=== PATIENT | male | born 2000 | race Caucasian/White ===

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

== ENCOUNTER 2018-10-04 10:43 | Emergency (ER) | payer BC ==
[2018-10-04] MEDS ORDERED: ONDANSETRON 4 MG/2 ML VIAL IVP STA (11:05)
[2018-10-04] MEDS ORDERED: SODIUM CHLORIDE 0.9% 1,000 ML IV STA ×2 (11:05)
[2018-10-04] MEDS ORDERED: KETOROLAC 30 MG/ML 1 ML VIAL IVP STA (11:24)
--- NOTE | 2018-10-04 11:39 | ED ---
Nausea/Vomiting/Diarrhea HPI - General Chief complaint: Nausea/Vomiting/Diarrhea Stated complaint: fever, bodyaches Time Seen by Provider: 10/04/18 11:04 Source: patient, RN notes reviewed, old records reviewed Mode of arrival: ambulatory Limitations: no limitations - History of Present Illness Initial comments: Is a 18-year-old male presents range from today with fever bodyaches diarrhea and vomiting. Patient reports that he has diffuse abdominal pain and also complained of some chest pain. Recently getting over bronchitis and finished antibiotics last week. Patient states he's had no bloody stools or vomit. - Related Data Home Medications Medication Instructions Recorded Confirmed Lisdexamfetamine Dimesylate 60 mg PO DAILY PRN 08/03/17 10/04/18 [Vyvanse] DULoxetine HCL [Cymbalta] 30 mg PO DAILY 10/04/18 10/04/18 Pregabalin [Lyrica] 75 mg PO BID 10/04/18 10/04/18 clonazePAM [KlonoPIN] 0.5 mg PO BID 10/04/18 10/04/18 Previous Rx's Medication Instructions Recorded Ciprofloxacin HCl [Cipro] 500 mg PO BID 3 Days #6 tab 10/04/18 Allergies Allergy/AdvReac Type Severity Reaction Status Date / Time latex Allergy Unknown Verified 10/04/18 11:05 red dye AdvReac Unknown Verified 10/04/18 11:05 Review of Systems ROS Statement: Those systems with pertinent positive or pertinent negative responses have been documented in the HPI. ROS Other: All systems not noted in ROS Statement are negative. Past Medical History Past Medical History: Asthma, Hypertension Additional Past Medical History / Comment(s): back problems, fatty liver disease History of Any Multi-Drug Resistant Organisms: None Reported Past Surgical History: Adenoidectomy, Tonsillectomy Past Psychological History: ADD/ADHD Smoking Status: Former smoker Past Alcohol Use History: Rare Past Drug Use History: Marijuana General Exam - General Exam Comments Initial Comments: 18-year-old male. Alert and oriented. No distress. General: Well appearing, well nourished, in no distress. Oriented x 3, normal m ood and affect . Ambulating without difficulty. Skin: Good turgor, no rash, unusual bruising or prominent lesions Hair: Normal texture and distribution. HEENT: Head: Normocephalic, atraumatic, no visible or palpable masses, depressions, or scaring. Eyes: Visual acuity intact, conjunctiva clear, sclera non-icteric, EOM intact, PERRL. Mouth: Mucous membranes moist, no mucosal lesions. Teeth/Gums: No obvious caries or periodontal disease. No gingival inflammation or significant resorption. Pharynx: Mucosa non-inflamed, no tonsillar hypertrophy or exudate Neck: Supple, without lesions, bruits, or adenopathy, thyroid non-enlarged and non-tender Heart: No cardiomegaly or thrills; regular rate and rhythm, no murmur or gallop Lungs: Clear to auscultation and percussion Abdomen: Bowel sounds normal, Patient has some right upper quadrant and right lower quadrant tenderness. Back: Spine normal without deformity or tenderness, no CVA tenderness Extremities: No amputations or deformities, cyanosis, edema or varicosities, peripheral pulses intact Musculoskeletal: Normal gait and station. No misalignment, asymmetry, crepitation, defects, tenderness, masses, effusions, decreased range of motion, instability, atrophy or abnormal strength or tone in the head, neck, spine, ribs, pelvis or extremities. Neurologic: CN 2-12 normal. Sensation to pain, touch, and proprioception normal. DTRs normal in upper and lower extremities. No pathologic reflexes. Psychiatric: Oriented X3, intact recent and remote memory, judgment and insight, normal mood and affect. Limitations: no limitations Course Vital Signs 10/04/18 10/04/18 10:48 12:27 Temperature 97.6 F 98.3 F Pulse Rate 95 69 Respiratory 20 16 Rate Blood Pressure 125/73 127/77 O2 Sat by Pulse 99 98 Oximetry Medical Decision Making - Medical Decision Making This is a 18-year-old male presents emergency room today for nausea and vomiting for the past 3 days. He says some episodes of diarrhea. Also complains of chest pain. Recently getting off of antibiotics for Imodium. Patient at this time complains of some discomfort and chest. He was given IV fluids and Toradol. He states he is feeling somewhat better. Labwork was reviewed. Increased liver enzymes and is able to count is elevated. He had a low-grade temperature of 99.0. Patient was reevaluated AND containing please of abdominal discomfort. CT abdomen and pelvis is completed. This is negative for any acute process some evidence of fatty liver disease noted. Patient was able to sleep stool sample. Concerns for possible C. diff with recent antibiotic use. At this time Patient C. diff is negative. Fecal occult was positive. I discussed CT abdomen and pelvis was negative for any changes or signs of sig nificant colitis. At this time with patient's fecal occult being positive white count being elevated nausea and vomiting will treat the Patient for infectious diarrhea with 3 days of Cipro. I discussed this to culture be pending. Patient advised to follow-up with PCP. Will discharge Patient with a course of nausea medicine as well. - Lab Data Result diagrams: 10/04/18 11:25 10/04/18 11:25 Lab Results 10/04/18 10/04/18 10/04/18 Range/Units 11:25 11:25 11:25 WBC 17.5 H (4.0-11.0) k/uL RBC 5.99 H (4.30-5.90) m/uL Hgb 17.0 (13.0-17.5) gm/dL Hct 49.9 (39.0-53.0) % MCV 83.2 (80.0-100.0) fL MCH 28.3 (25.0-35.0) pg MCHC 34.1 (31.0-37.0) g/dL RDW 13.8 (11.5-15.5) % Plt Count 268 (150-450) k/uL Neutrophils % 89 % Lymphocytes % 4 % Monocytes % 5 % Eosinophils % 2 % Basophils % 0 % Neutrophils # 15.6 H (1.3-7.7) k/uL Lymphocytes # 0.7 L (1.0-4.8) k/uL Monocytes # 0.8 (0-1.0) k/uL Eosinophils # 0.3 (0-0.7) k/uL Basophils # 0.0 (0-0.2) k/uL Sodium 141 (137-145) mmol/L Potassium 4.7 (3.5-5.1) mmol/L Chloride 105 (98-107) mmol/L Carbon Dioxide 22 (22-30) mmol/L Anion Gap 14 mmol/L BUN 14 (9-20) mg/dL Creatinine 0.91 (0.66-1.25) mg/dL Est GFR (CKD-EPI)AfAm >90 (>60 ml/min/1.73 sqM) Est GFR (CKD-EPI)NonAf >90 (>60 ml/min/1.73 sqM) Glucose 120 H (74-99) mg/dL Calcium 10.4 H (8.4-10.2) mg/dL Total Bilirubin 1.1 (0.2-1.3) mg/dL AST 91 H (17-59) U/L ALT 235 H (21-72) U/L Alkaline Phosphatase 87 (38-126) U/L Total Protein 8.2 (6.3-8.2) g/dL Albumin 5.3 H (3.5-5.0) g/dL Amylase 61 (30-110) U/L Lipase 76 (23-300) U/L Urine Color Yellow Urine Appearance Clear (Clear) Urine pH 6.5 (5.0-8.0) Ur Specific [place] 1.026 (1.001-1.035) Urine Protein Trace H (Negative) Urine Glucose (UA) Negative (Negative) Urine Ketones Negative (Negative) Urine Blood Negative (Negative) Urine Nitrite Negative (Negative) Urine Bilirubin Negative (Negative) Urine Urobilinogen <2.0 (<2.0) mg/dL Ur Leukocyte Esterase Negative (Negative) Stool Occult Blood (Negative) C. difficile (EIA) Intrp (Negative) Influenza Type A RNA (Not Detectd) Influenza Type B (PCR) (Not Detectd) 10/04/18 10/04/18 10/04/18 Range/Units 12:15 14:00 14:03 WBC (4.0-11.0) k/uL RBC (4.30-5.90) m/uL Hgb (13.0-17.5) gm/dL Hct (39.0-53.0) % MCV (80.0-100.0) fL MCH (25.0-35.0) pg MCHC (31.0-37.0) g/dL RDW (11.5-15.5) % Plt Count (150-450) k/uL Neutrophils % % Lymphocytes % % Monocytes % % Eosinophils % % Basophils % % Neutrophils # (1.3-7.7) k/uL Lymphocytes # (1.0-4.8) k/uL Monocytes # (0-1.0) k/uL Eosinophils # (0-0.7) k/uL Basophils # (0-0.2) k/uL Sodium (137-145) mmol/L Potassium (3.5-5.1) mmol/L Chloride (98-107) mmol/L Carbon Dioxide (22-30) mmol/L Anion Gap mmol/L BUN (9-20) mg/dL Creatinine (0.66-1.25) mg/dL Est GFR (CKD-EPI)AfAm (>60 ml/min/1.73 sqM) Est GFR (CKD-EPI)NonAf (>60 ml/min/1.73 sqM) Glucose (74-99) mg/dL Calcium (8.4-10.2) mg/dL Total Bilirubin (0.2-1.3) mg/dL AST (17-59) U/L ALT (21-72) U/L Alkaline Phosphatase (38-126) U/L Total Protein (6.3-8.2) g/dL Albumin (3.5-5.0) g/dL Amylase (30-110) U/L Lipase (23-300) U/L Urine Color Urine Appearance (Clear) Urine pH (5.0-8.0) Ur Specific [place] (1.001-1.035) Urine Protein (Negative) Urine Glucose (UA) (Negative) Urine Ketones (Negative) Urine Blood (Negative) Urine Nitrite (Negative) Urine Bilirubin (Negative) Urine Urobilinogen (<2.0) mg/dL Ur Leukocyte Esterase (Negative) Stool Occult Blood Positive (Negative) C. difficile (EIA) Intrp Negative (Negative) Influenza Type A RNA Not Detected (Not Detectd) Influenza Type B (PCR) Not Detected (Not Detectd) - Radiology Data Radiology results: report reviewed CT shows moderate fatty infiltration of the liver. No acute changes to account for fever. Chest x-ray is negative for any acute process. KUB shows nonspecific small bowel loops containing year. Otherwise unremarkable study. Disposition Clinical Impression: Gastroenteritis, Positive occult stool blood test Disposition: HOME SELF-CARE Condition: Good Instructions (If sedation given, give patient instructions): Gastroenteritis (ED) Additional Instructions: Patient has a rest, remain hydrated. Use nausea medicine as needed, complete the antibiotic prescription. [place] diet and food.. Return to emergency department if any alarming signs or symptoms occur. Prescriptions: Ciprofloxacin HCl [Cipro] 500 mg PO BID 3 Days #6 tab Is patient prescribed a controlled substance at d/c from ED?: No Referrals: None,Stated [Primary Care Provider] - 1-2 days Radha Wiseman MD [STAFF PHYSICIAN] - 1-2 days Time of Disposition: 15:57
--- NOTE | 2018-10-04 12:02 | XR ---
EXAMINATION TYPE: XR chest 2V DATE OF EXAM: 10/04/2018 COMPARISON: 08/03/2017 INDICATION: Pain, flu symptoms x2 days TECHNIQUE: Frontal and lateral views of the chest are obtained. FINDINGS: The heart size is normal. The pulmonary vasculature is normal. The lungs are clear. IMPRESSION: 1. No acute pulmonary process.
--- NOTE | 2018-10-04 12:04 | XR ---
EXAMINATION TYPE: XR KUB DATE OF EXAM: 10/04/2018 COMPARISON: None INDICATION: Pain TECHNIQUE: Single view abdomen upright view FINDINGS: There is a paucity of bowel gas. Air-fluid level in what may be a small bowel loop within the right m idabdomen. Psoas margins are normal. No organomegaly is present. No suspicious air-fluid levels or differential air-fluid levels are present. No free air is present. No mass effect is evident. No suspicious calcifications are present. IMPRESSION: 1. Nonspecific small bowel loops containing air. 2. Study is otherwise unremarkable.
[2018-10-04 12:05] LABS: Appearance,Urine Clear (Clear); Basophils % (A) 0 %; Bilirubin,Urine Negative (Negative); Blood,Urine Negative (Negative); Color,Urine Yellow; Eosinophils # (A) 0.3 k/uL (0-0.7); Eosinophils % (A) 2 %; Glucose,Urine (UA) Negative (Negative); HCT 49.9 % (39.0-53.0); Ketones,Urine Negative (Negative); Leukocyte Esterase,Urine Negative (Negative); Lymphocytes # (A) 0.7 k/uL (1.0-4.8); Lymphocytes % (A) 4 %; MCH 28.3 pg (25.0-35.0); MCHC 34.1 g/dL (31.0-37.0); MCV 83.2 fL (80.0-100.0); Mean Platelet Volume 7.6; Monocytes # (A) 0.8 k/uL (0-1.0); Monocytes % (A) 5 %; Neutrophils # (A) 15.6 k/uL (1.3-7.7); Neutrophils % (A) 89 %; Nitrite,Urine Negative (Negative); PH, Urine 6.5 (5.0-8.0); Platelet Count 268 k/uL (150-450); Protein,Urine Trace (Negative); RBC 5.99 m/uL (4.30-5.90); RDW 13.8 % (11.5-15.5); Specific Gravity,Urine 1.026 (1.001-1.035); Urobilinogen,Urine <2.0 mg/dL (<2.0); WBC 17.5 k/uL (4.0-11.0)
[2018-10-04 12:12] LABS: ALT 235 U/L (21-72); AST 91 U/L (17-59); Albumin 5.3 g/dL (3.5-5.0); Alkaline Phosphatase 87 U/L (38-126); Amylase 61 U/L (30-110); Anion Gap 14 mmol/L; Blood Urea Nitrogen 14 mg/dL (9-20); Calcium 10.4 mg/dL (8.4-10.2); Carbon Dioxide 22 mmol/L (22-30); Chloride 105 mmol/L (98-107); Glucose 120 mg/dL (74-99); Lipase 76 U/L (23-300); Potassium 4.7 mmol/L (3.5-5.1); Sodium 141 mmol/L (137-145); Total Bilirubin 1.1 mg/dL (0.2-1.3); Total Protein 8.2 g/dL (6.3-8.2)
--- NOTE | 2018-10-04 13:41 | CT ---
EXAMINATION TYPE: CT abdomen pelvis w con DATE OF EXAM: 10/04/2018 COMPARISON: 10/12/2016 INDICATION: Abdomen pain fever DLP: 1207.9 mGycm, Automated exposure control for dose reduction was used. CONTRAST: 100 mL of Isovue 300. Study performed without Oral Contrast TECHNIQUE: Axial images were obtained from above the diaphragm to the pubic rami in the axial plane a t 5 mm thick sections. Reconstructed images are reviewed on the computer in the coronal plane. FINDINGS: Limited CT sections are obtained the lung bases. The lung bases are clear. CT ABDOMEN: Liver: There is moderate fatty infiltration throughout the liver. No discrete masses or cysts are marisela dent. Spleen: Normal Pancreas: Normal Adrenal glands: The adrenal glands are normal. Gallbladder: Normal Kidneys: No masses are evident. No hydronephrosis is present. No cysts are present. Delayed images were obtained through the kidneys, which remain unremarkable. Aorta: Normal Inferior vena cava: Normal. CT PELVIS: Small bowel loops containing fluid which can be associated with ileus. No evidence of obstruction is evident. There is present through normal-appearing:. Studies without oral contrast limiting bowel tanvir luation. Couple of diverticuli are within the sigmoid colon without evidence of acute diverticulitis. Appendix: Not identified. No suspicious tubular structures or inflammatory changes are evident. Urinary bladder: Normal. Genitourinary structures: Prostate appears unremarkable Osseous structures: No suspicious lytic or sclerotic lesions. Spondylolysis at L5 may be present. IMPRESSIONS: 1. Moderate fatty infiltration liver. 2. No suspicious acute changes to account for fever.
[2018-10-04] MEDS ORDERED: METOCLOPRAMIDE 5 MG/ML 2 ML VIAL IVP STA (14:18)
[2018-10-04] MEDS ORDERED: diphenhydrAMINE 50 MG/ML 1 ML VIAL IVP STA (14:19)
[2018-10-04] MEDS ORDERED: CIPROFLOXACIN HCL 500 MG TAB PO STA (15:58)
[2018-10-04 16:25] VITALS: BP 120/64; PULSE 100; RESP 20; TEMP 97.8
== END 2018-10-04 16:25 | disposition home or self-care (01) ==
LOC: EC 10:43
DX: K52.9 Noninfective gastroenteritis and colitis, unspecified (principal); R07.89 Other chest pain; K76.0 Fatty (change of) liver, not elsewhere classified; F90.9 Attention-deficit hyperactivity disorder, unspecified type; Z87.891 Personal history of nicotine dependence; Z79.899 Other long term (current) drug therapy; Z91.040 Latex allergy status; Z91.048 Other nonmedicinal substance allergy status
CPT/HCPCS: 36415; 80053; 82150; 83690; 85025; 82272; 81003; 87324; 87045; 87046; 87502; 71046; 74018; 74177; 99285; 96374; 96375 ×3; 96361 ×5; J1200; J2765; J2405; J1885; Q9967

== ENCOUNTER 2018-11-10 09:10 | Emergency (ER) | payer BC ==
--- NOTE | 2018-11-10 09:18 | ED ---
Abdominal Pain HPI - General Chief Complaint: Abdominal Pain Stated Complaint: epigastric pain Time Seen by Provider: 11/10/18 09:14 Source: patient Mode of arrival: ambulatory Limitations: no limitations - History of Present Illness Initial Comments: 18-year-old male history of hypertension and fatty liver disease presenting today for chief complaint of right upper quadrant abdominal pain x 1 day. Patient states the pain began last night around 8 PM shortly after drinking vodka. He states that the pain is located to the right upper abdomen, sharp and radiates towards the back. He states he has had some nausea and began vomiting this morning. He states his stools have been looser than normal he denies diffuse watery diarrhea. He denies melena or hematochezia. Patient denies chest pains shortest of breath he denies any surgical history. Denies lower abdominal pain. When pain persisted he presents emergency department for further evaluation. Remaining review of systems negative, patient denies any recent fever, chills, shortness of breath, numbness or tingling, dysuria or hematuria, headaches or visual changes, or any other complaints. - Related Data Home Medications Medication Instructions Recorded Confirmed No Known Home Medications 11/10/18 11/10/18 Allergies Allergy/AdvReac Type Severity Reaction Status Date / Time latex Allergy Unknown Verified 11/10/18 09:39 red dye AdvReac Unknown Verified 11/10/18 09:39 Review of Systems ROS Statement: Those systems with pertinent positive or pertinent negative responses have been documented in the HPI. ROS Other: All systems not noted in ROS Statement are negative. Past Medical History Past Medical History: Asthma, Hypertension Additional Past Medical History / Comment(s): back problems, fatty liver disease History of Any Multi-Drug Resistant Organisms: None Reported Past Surgical History: Adenoidectomy, Tonsillectomy Past Psychological History: ADD/ADHD, Anxiety, Depression Smoking Status: Former smoker Past Alcohol Use History: Rare Past Drug Use History: Marijuana General Exam - General Exam Comments Initial Comments: General: The patient is awake and alert, in no distress, and does not appear acutely ill. Eye: Pupils are equal, round and reactive to light, extra-ocular movements are intact. No nystagmus. There is normal conjunctiva bilaterally. No signs of icterus. Ears, nose, mouth and throat: There are moist mucous membranes and no oral lesions. Neck: The neck is supple, there is no tenderness or JVD. Cardiovascular: There is a regular rate and rhythm. No murmur, rub or gallop is appreciated. Respiratory: Lungs are clear to auscultation, respirations are non-labored, breath sounds are equal. No wheezes, stridor, rales, or rhonchi. Gastrointestinal: No noted diaphoresis, jaundice, pallor, protecting postures or squirming. Symmetrical pigmentation of abdomen without signs of inflammation. Umbilicus mildline, inverted without swelling. No dilated veins. No noted abdominal distention. No visible masses. No peristalsis, aortic pulsations, or ventral hernia. Bowel sounds audible in all 4 quadrants, unremarkable. She is tender to the right upper quadrant and epigastric region. Positive Zepeda sign. No rigidity or guarding Liver edge, not palpable. Spleen edge, right and left kidney not palpable. Superior bladder margin non-tender. Special Testing: Negative Rovsing, McBurney, Lauren, cutaneous hyperesthesia. Negative Heel Jar test. No CVA tenderness. Digital rectal exam deferred. Negative segovia turners or cullens sign Musculoskeletal: Normal ROM, no tenderness. Strength 5/5. Sensation intact. Pulses equal bilaterally 2+. Neurological: A&O x 3. CN II-XII intact, There are no obvious motor or sensory deficits. Coordination appears grossly intact. Speech is normal. Skin: Skin is warm and dry and no rashes or lesions are noted. Psychiatric: Cooperative, appropriate mood & affect, normal judgment. Limitations: no limitations Course Vital Signs 11/10/18 11/10/18 11/10/18 09:12 10:36 11:51 Temperature 97.5 F L 98.1 F Pulse Rate 56 L 57 L 45 L Respiratory 18 20 16 Rate Blood Pressure 133/75 122/72 111/67 O2 Sat by Pulse 97 99 98 Oximetry Medical Decision Making - Medical Decision Making 18-year-old male presenting today for chief complaint of right upper quadrant abdominal pain. Patient states this began last night shortly after drinking alcohol. Patient states he has had softer than usual stools he began vomiting this morning denies any hematemesis. Patient states when symptoms persisted she presented to emergency department this morning. Patient states the right upper quadrant pain, this is concerning for cholecystitis, possible pancreatitis peptic ulcer disease. Patient was given GI cocktail. This provided some relief. Patient's history of fatty liver. Patient has elevated transaminases. Ultrasound revealed findings consistent with fatty liver. No evidence of cholecystitis or pancreatitis. Patient did drink alcohol the night before. Acute abdominal series revealed no evidence of pneumoperitoneum. At this time I feel patient does not have a surgical abdomen. I feel patient is stable for discharge with outpatient primary care follow-up. If symptoms persist or worsen patient is to return to emergency department for further evaluation. Patient verbalized understanding of plan as well as all return parameters agreeable discharge. Patient heart rate less than 50 bpm, he states he has had extensive [facility] was a [facility] he states that this is his usual heart rate and they never found any abnormalities of the heart after extensive work up. EKG was obtained revealing marked sinus bradycardia. Otherwise normal EKG. At this time I feel patient is stable for discharge with return parameters as discussed in outpatient follow-up. Discussed case with type provider Dr. Linares reviewed EKG he is agreeable discharge at this time - Lab Data Result diagrams: 11/10/18 09:30 11/10/18 09:30 Lab Results 11/10/18 11/10/18 11/10/18 Range/Units 09:30 09:30 09:30 WBC 6.9 (4.0-11.0) k/uL RBC 5.19 (4.30-5.90) m/uL Hgb 15.1 (13.0-17.5) gm/dL Hct 44.2 (39.0-53.0) % MCV 85.2 (80.0-100.0) fL MCH 29.1 (25.0-35.0) pg MCHC 34.2 (31.0-37.0) g/dL RDW 13.8 (11.5-15.5) % Plt Count 296 (150-450) k/uL Neutrophils % 49 % Lymphocytes % 36 % Monocytes % 6 % Eosinophils % 4 % Basophils % 1 % Neutrophils # 3.4 (1.3-7.7) k/uL Lymphocytes # 2.5 (1.0-4.8) k/uL Monocytes # 0.4 (0-1.0) k/uL Eosinophils # 0.3 (0-0.7) k/uL Basophils # 0.1 (0-0.2) k/uL Sodium 144 (137-145) mmol/L Potassium 4.5 (3.5-5.1) mmol/L Chloride 105 (98-107) mmol/L Carbon Dioxide 28 (22-30) mmol/L Anion Gap 11 mmol/L BUN 13 (9-20) mg/dL Creatinine 0.95 (0.66-1.25) mg/dL Est GFR (CKD-EPI)AfAm >90 (>60 ml/min/1.73 sqM) Est GFR (CKD-EPI)NonAf >90 (>60 ml/min/1.73 sqM) Glucose 105 H (74-99) mg/dL Calcium 10.4 H (8.4-10.2) mg/dL Total Bilirubin 0.6 (0.2-1.3) mg/dL AST 68 H (17-59) U/L ALT 147 H (21-72) U/L Alkaline Phosphatase 70 (38-126) U/L Total Protein 7.8 (6.3-8.2) g/dL Albumin 5.1 H (3.5-5.0) g/dL Amylase 53 (30-110) U/L Lipase 68 (23-300) U/L Urine Color Yellow Urine Appearance Clear (Clear) Urine pH 6.0 (5.0-8.0) Ur Specific [place] 1.035 (1.001-1.035) Urine Protein Trace H (Negative) Urine Glucose (UA) Negative (Negative) Urine Ketones Negative (Negative) Urine Blood Negative (Negative) Urine Nitrite Negative (Negative) Urine Bilirubin Negative (Negative) Urine Urobilinogen <2.0 (<2.0) mg/dL Ur Leukocyte Esterase Negative (Negative) Disposition Clinical Impression: Fatty liver, Elevated liver enzymes, Abdominal pain Disposition: HOME SELF-CARE Condition: Good Instructions (If sedation given, give patient instructions): Abdominal Pain (ED) Additional Instructions: Please use medication as discussed. Please follow-up with family doctor in the next 2 days, I recommend GI physician follow-up as discussed. Please return to emergency room if the symptoms increase or worsen or for any other concerns. Is patient prescribed a controlled substance at d/c from ED?: No Referrals: None,Stated [Primary Care Provider] - 1-2 days [facility] [NON-STAFF] - 1-2 days Inessa Batres MD [STAFF PHYSICIAN] - 1-2 days Time of Disposition: 11:17
[2018-11-10] MEDS ORDERED: ONDANSETRON 4 MG/2 ML VIAL IVP STA (09:29)
[2018-11-10] MEDS ORDERED: SODIUM CHLORIDE 0.9% 1,000 ML IV STA (09:29)
[2018-11-10 09:46] LABS: Basophils # (A) 0.1 k/uL (0-0.2); Basophils % (A) 1 %; Eosinophils # (A) 0.3 k/uL (0-0.7); Eosinophils % (A) 4 %; HCT 44.2 % (39.0-53.0); HGB 15.1 gm/dL (13.0-17.5); Lymphocytes # (A) 2.5 k/uL (1.0-4.8); Lymphocytes % (A) 36 %; MCH 29.1 pg (25.0-35.0); MCHC 34.2 g/dL (31.0-37.0); MCV 85.2 fL (80.0-100.0); Monocytes # (A) 0.4 k/uL (0-1.0); Monocytes % (A) 6 %; Neutrophils # (A) 3.4 k/uL (1.3-7.7); Neutrophils % (A) 49 %; Platelet Count 296 k/uL (150-450); RBC 5.19 m/uL (4.30-5.90); RDW 13.8 % (11.5-15.5); WBC 6.9 k/uL (4.0-11.0)
[2018-11-10 09:55] LABS: ALT 147 U/L (21-72); AST 68 U/L (17-59); Albumin 5.1 g/dL (3.5-5.0); Alkaline Phosphatase 70 U/L (38-126); Amylase 53 U/L (30-110); Anion Gap 11 mmol/L; Blood Urea Nitrogen 13 mg/dL (9-20); Calcium 10.4 mg/dL (8.4-10.2); Carbon Dioxide 28 mmol/L (22-30); Chloride 105 mmol/L (98-107); Glucose 105 mg/dL (74-99); Lipase 68 U/L (23-300); Potassium 4.5 mmol/L (3.5-5.1); Sodium 144 mmol/L (137-145); Total Bilirubin 0.6 mg/dL (0.2-1.3); Total Protein 7.8 g/dL (6.3-8.2)
[2018-11-10 10:13] LABS: Appearance,Urine Clear (Clear); Bilirubin,Urine Negative (Negative); Blood,Urine Negative (Negative); Color,Urine Yellow; Glucose,Urine (UA) Negative (Negative); Ketones,Urine Negative (Negative); Leukocyte Esterase,Urine Negative (Negative); Nitrite,Urine Negative (Negative); Protein,Urine Trace (Negative); Specific Gravity,Urine 1.035 (1.001-1.035); Urobilinogen,Urine <2.0 mg/dL (<2.0)
--- NOTE | 2018-11-10 10:14 | US ---
EXAMINATION TYPE: US abdomen limited DATE OF EXAM: 11/10/2018 COMPARISON: None CLINICAL HISTORY: RUQ pain + murphys. RUQ pain. No surgeries. Patient states not eating this mornin g. EXAM MEASUREMENTS: Liver Length: 19.1 cm Gallbladder Wall: 0.2 cm CBD: 0.3 cm CHD: 0.3 cm Right Kidney: 10.3 x 5.0 x 3.7 cm Pancreas: Limited by overlying bowel gas Liver: Enlarged in size. Increased attenuation, decreased visualization of vessels suggestive of fat ty infiltrate. Focal sparing seen adjacent to GB. Appears coarse and lobular. Limited visualization of posterior right lobe due to attenuation. Gallbladder: Fold seen Evidence for sonographic Zepeda's sign: neg CBD: wnl Right Kidney: wnl IMPRESSION: 1. The liver appears to be enlarged measuring 19 cm with a coarse echo pattern which is heterogeneous . Differential diagnosis would include fatty infiltration, hepatitis or diffuse hepatocellular diseas e.
[2018-11-10] MEDS ORDERED: MAG HYDROX/AL HYDROX/SIMETH 30 ML, HYOSCYAMINE ELIXIR 10 ML, CIMETIDINE HCL 300 MG, LID... PO STA ×4 (10:15)
--- NOTE | 2018-11-10 11:15 | XR ---
EXAMINATION TYPE: XR abdomen acute w cxr DATE OF EXAM: 11/10/2018 COMPARISON: 10/04/2018 HISTORY: Pain TECHNIQUE: Supine, upright, and left side down lateral decubitus views of the abdomen are obtained. FINDINGS: Limited inspiration demonstrates the lungs to be clear with no obvious consolidation, pleur al effusion or or pneumothorax. The bowel gas pattern is nonspecific. Osseous structures intact. No definite suspicious calcification s. IMPRESSION: Nonspecific abdomen
[2018-11-10] MEDS ORDERED: KETOROLAC 30 MG/ML 1 ML VIAL IVP STA (11:31)
[2018-11-10 11:54] VITALS: BP 111/67; PULSE 45; RESP 16; TEMP 98.1
== END 2018-11-10 12:21 | disposition home or self-care (01) ==
LOC: EC 09:10
DX: K76.0 Fatty (change of) liver, not elsewhere classified (principal); R74.8 Abnormal levels of other serum enzymes; R10.13 Epigastric pain; R10.11 Right upper quadrant pain; Z87.891 Personal history of nicotine dependence; Z91.040 Latex allergy status; Z91.09 Other allergy status, other than to drugs and biological substances
CPT/HCPCS: 36415; 93005; 80053; 82150; 83690; 85025; 81003; 74022; 76705; 99284; 96374; 96375; 96361; J2405; J1885

== ENCOUNTER → 2018-12-30 | Outpatient (CLI) | payer BC ==
--- NOTE | 2018-12-30 13:58 | NM ---
EXAMINATION TYPE: NM hepatobiliary w EF DATE OF EXAM: 12/30/2018 COMPARISON: NONE HISTORY: Abdominal pain and nausea TECHNIQUE: After the intravenous administration of 5.15 mCi Tc 99m Mebrofenin hepatobiliary scintigra phy is performed. Immediate images post injection. FINDINGS: There is satisfactory initial accumulation of tracer by the liver. The gallbladder is visualized wit hin 8 minutes. The small bowel activity is noted within on delayed imaging after 1 hour minutes. At one hour 8 ounces of oral ensure plus is given to mimic CCK and gallbladder ejection fraction is ranjit culated at 83 %, abnormally elevated. Therefore there is no scintigraphic evidence of cystic or comm on bile duct obstruction to suggest acute cholecystitis or gallbladder dyskinesia. IMPRESSION: Abnormally elevated and gallbladder ejection fraction compatible with biliary hyperkinesi a. No scintigraphic evidence of acute or chronic cholecystitis.
== END | disposition home or self-care (01) ==
LOC: RADNMMAIN 09:17
PROVIDERS: ATTEND Family Medicine
DX: K82.8 Other specified diseases of gallbladder (principal); R63.4 Abnormal weight loss; Z91.041 Radiographic dye allergy status
CPT/HCPCS: 78226; A9537

== ENCOUNTER 2019-01-08 11:36 | Day surgery (SDC) | payer BC ==
[2019-01-03 11:11] VITALS: BMI 32.1
[2019-01-08] MEDS ORDERED: DEXAMETHASONE SOD PHOSPHATE 10 MG/ML 1 ML VIAL IV ONE (11:47)
[2019-01-08] MEDS ORDERED: MIDAZOLAM 2 MG/2 ML VIAL IV PRN (11:47)
[2019-01-08] MEDS ORDERED: LIDOCAINE 1% 20 ML VIAL (10MG/ML) FOR IV START INTRADERMA PRN (11:47)
[2019-01-08] MEDS ORDERED: ONDANSETRON 4 MG/2 ML VIAL IVP ONE (11:47)
[2019-01-08] MEDS ORDERED: LACTATED RINGERS 1,000 ML IV SCH (11:47)
[2019-01-08 11:55] VITALS: TEMP 98.7
--- NOTE | 2019-01-08 12:23 | P.GSHP ---
History of Present Illness H&P Date: 01/08/19 Chief Complaint: Right upper quadrant pain This a 18-year-old male was withdrawn quadrant pain. His recent HIDA scan shows abnormal ejection fraction is with chronic cholecystitis. Past Medical History Past Medical History: Asthma, GERD/Reflux, Hypertension Additional Past Medical History / Comment(s): back & right shoulder pain, daily N/V for past 4 months, weight loss, fatty liver disease, hx. of blood c lot/hematoma left arm 2 yrs. ago-took blood thinner for short time, has slow heart rate History of Any Multi-Drug Resistant Organisms: None Reported Past Surgical History: Adenoidectomy, Tonsillectomy Additional Past Surgical History / Comment(s): EGD Past Anesthesia/Blood Transfusion Reactions: No Reported Reaction Smoking Status: Former smoker - Past Family History Mother Family Medical History: No Reported History Medications and Allergies Home Medications Medication Instructions Recorded Confirmed Type Albuterol Inhaler [Ventolin Hfa 1 - 2 puff INHALATION RT-Q6H PRN 01/03/19 01/08/19 History Inhaler] Omeprazole [PriLOSEC] 40 mg PO DAILY PRN 01/03/19 01/08/19 History Ondansetron [Zofran] 4 mg PO Q8HR PRN 01/03/19 01/08/19 History Allergies Allergy/AdvReac Type Severity Reaction Status Date / Time latex Allergy Rash/Hives Verified 01/08/19 11:56 red dye AdvReac Unknown Verified 01/08/19 11:56 Surgical - Exam Vital Signs Temp Pulse Resp BP Pulse Ox 98.7 F 47 L 16 130/59 97 01/08/19 11:54 01/08/19 11:54 01/08/19 11:54 01/08/19 11:54 01/08/19 11:54 - General well developed, well nourished, no distress - Eyes PERRL - ENT normal pinna - Neck no masses - Respiratory normal expansion - Cardiovascular Rhythm: regular - Abdomen Abdomen: soft, non tender Assessment and Plan Assessment: Chronic cholecystitis. We'll perform laparoscopic cholecystectomy.
[2019-01-08] MEDS ORDERED: HEPARIN SODIUM,PORCINE 5,000 UNIT/ML 1 ML VIAL SQ ONE (12:30)
[2019-01-08] MEDS ORDERED: BUPIVACAINE (PF) 0.5% 30 ML VIAL SQ ONE ×2 (12:35→13:06)
[2019-01-08] MEDS ORDERED: SUCCINYLCHOLINE CHLORIDE 100 MG/5 ML SYR IV ONE (12:40)
[2019-01-08] MEDS ORDERED: PROPOFOL 10 MG/ML 20 ML VIAL IV ONE (12:40)
[2019-01-08] MEDS ORDERED: MIDAZOLAM 2 MG/2 ML VIAL ONE (12:40)
[2019-01-08] MEDS ORDERED: VECURONIUM 10 MG VIAL IV ONE (12:40)
[2019-01-08] MEDS ORDERED: LIDOCAINE 1% INJ 10MG/ML (20 ML MDV) ONE (12:40)
[2019-01-08] MEDS ORDERED: fentaNYL (PF) 50 MCG/ML 2 ML AMP ONE (12:40)
[2019-01-08] MEDS ORDERED: GLYCOPYRROLATE 0.2 MG/ML 2 ML VIAL ONE (12:40)
[2019-01-08] MEDS ORDERED: NEOSTIGMINE 1 MG/ML 10 ML VIAL ONE (12:40)
[2019-01-08] MEDS ORDERED: SODIUM CHLORIDE 0.9% 100 ML with ceFAZolin 2,000 MG IV ONE ×2 (12:49)
[2019-01-08] MEDS ORDERED: HYDROmorphone 1 MG/ML 1 ML SYRINGE IVP ONE ×3 (13:33→14:33)
[2019-01-08] MEDS ORDERED: diphenhydrAMINE 50 MG/ML 1 ML VIAL IVP ONE (13:38)
--- NOTE | 2019-01-08 13:52 | P.OP ---
Date of Procedure: 01/08/19 Preoperative Diagnosis: Cholecystitis Postoperative Diagnosis: Cholecystitis Procedure(s) Performed: Laparoscopic cholecystectomy Anesthesia: ANTHONY Surgeon: Isidro White Estimated Blood Loss (ml): 5 Pathology: other (Gallbladder) Condition: stable Disposition: PACU Description of Procedure: The patient was placed on the operating table. The patient received a general endotracheal tube anesthesia. The patients abdomen was prepped and draped in the usual sterile fashion. Through an infraumbilical stab incision, the fascia of the anterior abdominal wall was grasped with a pair of Kochers and then the Veress needle was placed in the peritoneal cavity. Position of the Veress needle was confirmed with positive drop test. The abdomen was then insufflated. After adequate insufflation, the 10 mm trocar was placed in the peritoneal cavity. Following this the laparoscope was placed in the peritoneal cavity. The patient was placed in the head-up, right side up position and then a 5 mm trocar was placed in the right lateral and right subcostal position under direct visualization. A 8 mm trocar was placed in the epigastric position. The gallbladder was grasped in the fundus and infundibulum. Traction on the gallbladder was placed in the lateral and the cephalad positions. The triangle of Calot was visualized.. The cystic duct was bluntly dissected until the union of the cystic duct and common bile duct was seen. A critical view of safety was achieved. The cystic duct was then divided and sealed with the Harmonic scissors. A PDS Endoloop was then placed throughout the cystic duct stump. The cystic artery divided and sealed with the Harmonic scissors. The gallbladder was then removed from the liver bed using Harmonic scissors. The gallbladder was then extracted through the epigastric port site. Operative field was checked for any bleeding spots and Harmonic scissors was used to coagulate the liver bed. The abdomen was irrigated. The trocars were removed. The skin was closed using interrupted 3-0 Vicryl suture. Dermabond dressing were applied. The patient tolerated the procedure well.
[2019-01-08 14:37] VITALS: RESP 18
[2019-01-08] MEDS ORDERED: LACTATED RINGERS 1,000 ML IV ONE (14:40)
[2019-01-08] MEDS ORDERED: HYDROcodone/APAP 5-325MG 1 EACH TAB PO ONE (15:52)
[2019-01-08 16:20] VITALS: BP 114/72; PULSE 55
== END 2019-01-08 16:45 | disposition home or self-care (01) ==
LOC: OR 11:36
PROVIDERS: ATTEND Surgery
DX: K81.1 Chronic cholecystitis (principal); I10 Essential (primary) hypertension; J45.909 Unspecified asthma, uncomplicated; G43.909 Migraine, unspecified, not intractable, without status migrainosus; K21.9 Gastro-esophageal reflux disease without esophagitis; R11.2 Nausea with vomiting, unspecified; F41.9 Anxiety disorder, unspecified; F32.9 Major depressive disorder, single episode, unspecified; F90.9 Attention-deficit hyperactivity disorder, unspecified type; K76.0 Fatty (change of) liver, not elsewhere classified; M25.511 Pain in right shoulder; M54.9 Dorsalgia, unspecified; Z87.891 Personal history of nicotine dependence; Z79.899 Other long term (current) drug therapy; Z91.040 Latex allergy status; Z91.02 Food additives allergy status
CPT/HCPCS: 47562; 88304; J2250; J1200; J1644; J1100; J2710; J2405; J0690; J2001; J3010; J1170; J0330; J2704

== ENCOUNTER 2019-03-27 10:37 | Day surgery (SDC) | payer BC ==
[2019-03-26 08:37] VITALS: BMI 29.7
[~2019-03-27 10:37] MED LIST: LIDOCAINE 1% 20 ML VIAL (10MG/ML) FOR IV START INTRADERMA PRN
[2019-03-27 10:54] VITALS: RESP 18; TEMP 97.7
[2019-03-27] MEDS: LACTATED RINGERS 1,000 ML IV SCH ×2 (11:01→11:02)
[2019-03-27] MEDS ORDERED: LIDOCAINE 1% INJ 10MG/ML (20 ML MDV) ONE (11:03)
[2019-03-27] MEDS ORDERED: PROPOFOL 10 MG/ML 20 ML VIAL IV ONE (11:03)
--- NOTE | 2019-03-27 11:49 | P.PCN ---
Date of Procedure: 03/27/19 Description of Procedure: Brief history: Patient is a pleasant scheduled for an elective upper endoscopy as well as colonoscopy as a part of evaluation of altered bowel function, diarrhea, abdominal pain and reflux. Patient reporting uncontrolled reflux with associated abdominal pain and increased frequency of bowel movements. Procedure performed: Esophagogastroduodenoscopy with biopsy Aborted/failed Colonoscopy due to poor prep Estimated blood loss: Minimal. Preoperative diagnosis: GERD, change in bowel habits Anesthesia: MAC Procedure: After informed consent was obtained from the patient was brought into the endoscopy unit and IV sedation was administered by anesthesia under continuous monitoring. Initially upper endoscopy was done. The Olympus GF 190 video endoscope was inserted inserted into the mouth and esophagus intubated without any difficulty and was gradually advanced into the stomach and duodenum and carefully examined. The bulb and second part of the duodenum were significant for mild scattered erythema suggestive of mild duodenitis with biopsies taken The scope was then withdrawn into the stomach adequately insufflated with air and upon careful examination the antrum and body, cardia and fundus appeared normal, Except for some mild scattered erythema in the antrum and body suggestive of mild gastritis with biopsies taken. The scope was then withdrawn into the esophagus. The GE junction was located at 40 cm to the incisors. It appeared regular with no erythema erosions or ulcerations. Rest of the esophagus appeared normal. Patient tolerated the procedure well. At this time the patient continued to remain sedation. Initial digital rectal examination was normal. Olympus CF 160 video colonoscope was then inserted into the rectum and gradually advanced to the sigmoid colon. A large amounts of solid stool was noted throughout the entire visualized colon prohibiting complete visualization of the mucosa and increasing risks of the procedure. At this point the procedure was aborted. The patient tolerated the procedure well. Impression: 1. Mild duodenitis, biopsied. Mild gastritis antrum and body, biopsied. 2. Incomplete/aborted colonoscopy secondary to poor prep with a large amount of solid stool in the colon. Recommendations: Findings of this examination were discussed with the patient as well asHis mother. Await pathology from biopsies. Continue current medical management. Follow-up with gastroenterology as previously scheduled. We'll reschedule a colonoscopy with 2 day prep.
[2019-03-27 11:56] VITALS: BP 121/75; PULSE 57
== END 2019-03-27 12:16 | disposition home or self-care (01) ==
LOC: ORWHC2ENDO 10:37
PROVIDERS: ATTEND Internal Medicine
DX: K29.50 Unspecified chronic gastritis without bleeding (principal); K21.9 Gastro-esophageal reflux disease without esophagitis; R19.4 Change in bowel habit; F17.210 Nicotine dependence, cigarettes, uncomplicated; Z90.49 Acquired absence of other specified parts of digestive tract; Z90.89 Acquired absence of other organs; Z79.899 Other long term (current) drug therapy; Z91.040 Latex allergy status; Z91.02 Food additives allergy status
CPT/HCPCS: 88305; 45378; 43239; J2001; J2704

== ENCOUNTER 2020-06-16 09:56 | Day surgery (SDC) | payer BC ==
[2020-06-13 12:02] VITALS: BMI 31.3
[~2020-06-16 09:56] MED LIST changes: +LACTATED RINGERS 1,000 ML IV SCH; +LIDOCAINE 1% (10MG/ML) FOR IV START INTRADERMA PRN; -LIDOCAINE 1% 20 ML VIAL (10MG/ML) FOR IV START INTRADERMA PRN
[2020-06-16 10:15] VITALS: TEMP 98.1
[2020-06-16] MEDS ORDERED: MIDAZOLAM 2 MG/2 ML VIAL ONE (10:52)
[2020-06-16] MEDS ORDERED: PROPOFOL 10 MG/ML 20 ML VIAL IV ONE (10:52)
[2020-06-16] MEDS ORDERED: fentaNYL (PF) 50 MCG/ML 2 ML AMP ONE (10:52)
[2020-06-16] MEDS ORDERED: LIDOCAINE 1% INJ 10MG/ML (20 ML MDV) ONE (10:52)
--- NOTE | 2020-06-16 11:37 | P.PCN ---
Date of Procedure: 06/16/20 Description of Procedure: Brief history: Patient is a pleasant 20-year-old male presenting for outpatient colonoscopy and EGD for evaluation of symptoms of GERD and diarrhea. Patient reports uncontrolled reflux with abdominal pain. He also has frequent loose bowel movements. Procedure performed: Esophagogastroduodenoscopy with biopsy Colonoscopy with biopsy Estimated blood loss: Minimal. Preoperative diagnosis: GERD, diarrhea, change in bowel habits, prior attempt at colonoscopy was aborted due to poor prep and solid stool in the colon Anesthesia: MAC Procedure: After informed consent was obtained from the patient was brought into the endoscopy unit and IV sedation was administered by anesthesia under continuous monitoring. Initially upper endoscopy was done. The Olympus GF 190 video endoscope was inserted into the mouth and esophagus intubated without any difficulty and was gradually advanced into the stomach and duodenum and carefully examined. The bulb and second part of the duodenum appeared normal, with biopsies taken. The scope was then withdrawn into the stomach adequately insufflated with air and upon careful examination the antrum and body, cardia and fundus appeared normal, with some mild scattered punctate erythema in the antrum and body suggestive of mild gastritis with biopsies taken. The scope was then withdrawn into the esophagus. The GE junction was located at 38 cm to the incisors and biopsied. It appeared regular with no erythema erosions or ulcerations. Rest of the esophagus appeared normal. Patient tolerated the procedure well. At this time the patient continued to remain sedation. Initial digital rectal examination was normal. Olympus CF 190 video colonoscope was then inserted into the rectum and gradually advanced to the cecum without any difficulty. Careful examination was performed as the scope was gradually being withdrawn. The prep was excellent. The cecum, ascending colon, transverse colon, descending colon, sigmoid colon and rectum appeared normal, with random biopsies taken of the right and left on the setting of altered bowel function. The terminal ileum was intubated and appeared normal with biopsies taken. Retroflexion was performed in the rectum and no lesions were noted. Patient tolerated the procedure well. Impression: 1. Mild gastritis. Biopsies of the antrum body, duodenum and GE junction. 2. Normal-appearing colon from rectum to cecum and normal-appearing terminal ileum with random biopsies taken of the terminal ileum, right colon and left colon in the setting of diarrhea. Recommendations: Findings of this examination were discussed with the patient as well as his [id number]. Okay to resume diet. Okay to resume medications. Await pathology from biopsies.
[2020-06-16 11:47] VITALS: BP 113/82; PULSE 71; RESP 18
== END 2020-06-16 12:53 | disposition home or self-care (01) ==
LOC: ORWHC2ENDO 09:56
PROVIDERS: ATTEND Internal Medicine
DX: R19.7 Diarrhea, unspecified (principal); R19.4 Change in bowel habit; K63.89 Other specified diseases of intestine; K29.50 Unspecified chronic gastritis without bleeding; K21.00 Gastro-esophageal reflux disease with esophagitis, without bleeding; Z91.040 Latex allergy status; Z91.02 Food additives allergy status; Z79.899 Other long term (current) drug therapy; Z90.89 Acquired absence of other organs; Z90.49 Acquired absence of other specified parts of digestive tract; Z98.890 Other specified postprocedural states
CPT/HCPCS: 88305; 45380; 43239; J2250; J2001; J3010; J2704

== ENCOUNTER → 2020-10-22 | Outpatient (CLI) | payer BC ==
--- NOTE | 2020-10-22 12:02 | XR ---
EXAMINATION TYPE: XR chest 2V DATE OF EXAM: 10/22/2020 COMPARISON: Chest x-ray and CT 10/04/2018 HISTORY: Shortness of breath, Z86.16 TECHNIQUE: Frontal and lateral views of the chest are obtained. FINDINGS: There is no focal air space opacity, pleural effusion, or pneumothorax seen. The cardiac silhouette size is within normal limits. Mild elevation of right hemidiaphragm is stable consistent w ith patient's hepatic steatosis, hepatomegaly. The osseous structures are intact, there is a gentle spinal curvature. IMPRESSION: No acute cardiopulmonary process.
== END | disposition home or self-care (01) ==
LOC: RADXRMAIN 10:53
PROVIDERS: ATTEND Physician Assistant
DX: R06.02 Shortness of breath (principal); Z86.16 Personal history of COVID-19
CPT/HCPCS: 71046

== ENCOUNTER 2023-05-05 03:53 | Emergency (ER) | payer BC ==
[2023-05-05] MEDS ORDERED: MORPHINE SULFATE 4 MG/ML SYRINGE IV STA (04:48)
[2023-05-05] MEDS ORDERED: ONDANSETRON 4 MG/2 ML VIAL IVP STA (04:48)
[2023-05-05] MEDS ORDERED: SODIUM CHLORIDE 0.9% 1,000 ML IV STA (04:48)
--- NOTE | 2023-05-05 05:05 | ED ---
General Adult HPI - General Chief complaint: Abdominal Pain Stated complaint: Abd pain,vomitting Time Seen by Provider: 05/05/23 04:01 Source: patient Mode of arrival: ambulatory Limitations: no limitations - History of Present Illness Initial comments: Dictation was produced using [employer] dictation software. please excuse any grammatical, word or spelling errors. Chief Complaint: 22-year-old male presents emergency Department with abdominal pain and vomiting History of Present Illness: Patient 22-year-old male with no significant past medical history presents with abdominal pain and vomiting. Patient and his girlfriend have similar symptoms however his girlfriend had symptoms prior. Denies any chance of food poisoning. No diarrhea. He is passing gas. Patient has been having vomiting and abdominal pain. States that the pain is periumbilical. Denies any fever or constitutional symptoms. The ROS documented in this emergency department record has been reviewed and confirmed by me. Those systems with pertinent positive or negative responses have been documented in the HPI. All other systems are other negative and/or noncontributory. - Related Data Home Medications Medication Instructions Recorded Confirmed Albuterol Inhaler [Ventolin Hfa 1 - 2 puff INHALATION RT-Q6H PRN 01/03/19 06/16/20 Inhaler] Previous Rx's Medication Instructions Recorded HYDROcodone/APAP 5-325MG [[place] 1 tab PO Q6HR PRN 3 Days #12 tab 05/05/23 5-325] Ondansetron Odt [Zofran Odt] 4 mg PO Q8HR PRN #12 tab 05/05/23 Pantoprazole [Protonix] 40 mg PO DAILY 14 Days #14 tab 05/05/23 Allergies Allergy/AdvReac Type Severity Reaction Status Date / Time latex Allergy Rash/Hives Verified 05/05/23 03:58 red dye AdvReac Unknown Verified 05/05/23 03:58 Review of Systems ROS Statement: Those systems with pertinent positive or pertinent negative responses have been documented in the HPI. ROS Other: All systems not noted in ROS Statement are negative. Past Medical History Past Medical History: Asthma, GERD/Reflux, Hypertension, Liver Disease, Osteoarthritis (OA) Additional Past Medical History / Comment(s): back & right shoulder pain,mid back pain, daily N/V weight loss, fatty liver disease, hx. of blood clot/hematoma left arm 2 yrs. ago-took blood thinner for short time, has slow heart rate History of Any Multi-Drug Resistant Organisms: None Reported Past Surgical History: Adenoidectomy, Cholecystectomy, Tonsillectomy Additional Past Surgical History / Comment(s): EGD Past Anesthesia/Blood Transfusion Reactions: No Reported Reaction, Motion Sickness Past Psychological History: ADD/ADHD, Anxiety, Depression Smoking Status: Former smoker Past Alcohol Use History: None Reported Past Drug Use History: None Reported - Past Family History Mother Family Medical History: No Reported History General Exam - General Exam Comments Initial Comments: PHYSICAL EXAM: General Impression: Alert and oriented x3, not in acute distress HEENT: Normocephalic atraumatic, extra-ocular movements intact, pupils equal and reactive to light bilaterally, mucous membranes moist. Cardiovascular: Heart regular rate and rhythm Chest: Able to complete full sentences, no retractions, no tachypnea Abdomen: abdomen soft, palpatory tenderness to the. Buccal area, non-distended, no organomegaly Musculoskeletal: Pulses present and equal in all extremities, no peripheral edema Motor: no focal deficits noted Neurological: CN II-XII grossly intact, no focal motor or sensory deficits noted Skin: Intact with no visualized rashes Psych: Normal affect and mood Limitations: no limitations Course Vital Signs 05/05/23 05/05/23 03:58 06:21 Temperature 97.9 F 98.6 F Pulse Rate 63 60 Respiratory 18 16 Rate Blood Pressure 160/102 147/96 O2 Sat by Pulse 98 96 Oximetry Medical Decision Making - Medical Decision Making Was pt. sent in by a medical professional or institution (, PA, IMMIGRATION CASE WORKER, urgent care, hospital, or [facility]...) When possible be specific @ -No Did you speak to anyone other than the patient for history (EMS, parent, family, police, friend...)? What history was obtained from this source @ -No Did you review nursing and triage notes (agree or disagree)? Why? @ -I reviewed and agree with nursing and triage notes Were old charts reviewed (outside hosp., previous admission, EMS record, old EKG, old radiological studies, urgent care reports/EKG's, [facility] records)? Report findings @ -No old charts were reviewed Differential Diagnosis (chest pain, altered mental status, abdominal pain women, abdominal pain men, vaginal bleeding, musculoskeletal, weakness, fever, dyspnea, syncope, headache, dizziness, GI bleed, back pain, seizure, CVA, palpatations, mental health)? @ -Differential Abdominal Pain Men: Appendicitis, cholecystitis, diverticulosis, ischemic bowel, pancreatitis, hepatitis, UTI, gastroenteritis, AAA, incarcerated hernia, bowel obstruction, constipation, inflammatory bowel, hepatitis, peptic ulcer disease, splenic infarction, perforated viscus, testicular torsion, this is not meant to be an all-inclusive list EKG interpreted by me (3pts min.). @ -None done X-rays interpreted by me (1pt min.). @ -None done CT interpreted by me (1pt min.). @ -Computed tomography scan of the abdomen and pelvis shows No intra-abdominal infection. There does appear to be findings suspicious for gastritis U/S interpreted by me (1pt. min.). @ -None done What testing was considered but not performed or refused? (CT, X-rays, U/S, labs)? Why? @ -None What meds were considered but not given or refused? Why? @ -None Did you discuss the management of the patient with other professionals (professionals i.e. , PA, IMMIGRATION CASE WORKER, lab, RT, psych nurse, elementary school social worker, neurology nurse, teacher, traffic officer, window caser)? Give summary @ -No Was smoking cessation discussed for >3mins.? @ -No Was critical care preformed (if so, how long)? @ -No Were there social determinants of health that impacted care today? How? (Homelessness, low income, unemployed, alcoholism, drug addiction, transportation, low edu. Level, literacy, decrease access to med. care, intermediate, rehab)? @ -No Was there de-escalation of care discussed even if they declined (Discuss DNR or withdrawal of care, Hospice)? DNR status @ -No What co-morbidities impacted this encounter? (DM, HTN, Smoking, COPD, CAD, Cancer, CVA, ARF, Chemo, Hep., AIDS, mental health diagnosis, sleep apnea, mor bid obesity)? @ -None Was patient admitted / discharged? Hospital course, mention meds given and route, prescriptions, significant lab abnormalities, going to OR and other pertinent info. @ -22 Year-old male presents emergency Department with acute GI symptoms. His fianc has similar symptoms. Not sure if they were victims of food poisoning. Vital signs upon arrival are within acceptable limits. Laboratory evaluation obtained within acceptable limits. CT imaging is negative. Radiology made comment of possible gastritis. Patient given GI cocktail. Given prescription for antiemetics, Protonix and analgesics. Advised follow up with primary care doctor Undiagnosed new problem with uncertain prognosis? @ -No Drug Therapy requiring intensive monitoring for toxicity (Heparin, Nitro, Insulin, Cardizem)? @ -No Were any procedures done? @ -No Diagnosis/symptom? Acute, or Chronic, or Acute on Chronic? Uncomplicated (without systemic symptoms) or Complicated (systemic symptoms)? @ -Gastroenteritis Side effects of treatment? @ -No Exacerbation, Progression, or Severe Exacerbation? @ -No Poses a threat to life or bodily function? How? (Chest pain, [place], [place], pneumonia, PE, COPD, DKA, ARF, appy, cholecystitis, CVA, Diverticulitis, Homicidal, Suicidal, threat to staff... and all critical care pts) @ -yes - Lab Data Result diagrams: 05/05/23 04:49 05/05/23 04:49 Lab Results 05/05/23 05/05/23 05/05/23 Range/Units 04:49 04:49 04:49 WBC 14.1 H (3.8-10.6) k/uL RBC 5.54 (4.30-5.90) m/uL Hgb 16.4 (13.0-17.5) gm/dL Hct 45.8 (39.0-53.0) % MCV 82.7 (80.0-100.0) fL MCH 29.6 (25.0-35.0) pg MCHC 35.8 (31.0-37.0) g/dL RDW 13.6 (11.5-15.5) % Plt Count 281 (150-450) k/uL MPV 8.1 Neutrophils % 68 % Lymphocytes % 24 % Monocytes % 5 % Eosinophils % 1 % Basophils % 0 % Neutrophils # 9.6 H (1.3-7.7) k/uL Lymphocytes # 3.4 (1.0-4.8) k/uL Monocytes # 0.7 (0-1.0) k/uL Eosinophils # 0.1 (0-0.7) k/uL Basophils # 0.0 (0-0.2) k/uL Sodium 138 (137-145) mmol/L Potassium 4.3 (3.5-5.1) mmol/L Chloride 99 (98-107) mmol/L Carbon Dioxide 26 (22-30) mmol/L Anion Gap 13 mmol/L BUN 15 (9-20) mg/dL Creatinine 0.94 (0.66-1.25) mg/dL Est GFR (CKD-EPI)AfAm >90 (>60 ml/min/1.73 sqM) Est GFR (CKD-EPI)NonAf >90 (>60 ml/min/1.73 sqM) Glucose 119 H (74-99) mg/dL Plasma Lactic Acid Farhat 1.5 (0.7-2.0) mmol/L Calcium 9.6 (8.4-10.2) mg/dL Magnesium 1.9 (1.6-2.3) mg/dL Total Bilirubin 1.6 H (0.2-1.3) mg/dL AST 40 (17-59) U/L ALT 37 (4-49) U/L Alkaline Phosphatase 46 (38-126) U/L Total Protein 8.3 H (6.3-8.2) g/dL Albumin 5.2 H (3.5-5.0) g/dL Disposition Clinical Impression: Gastroenteritis Disposition: HOME SELF-CARE Condition: Good Prescriptions: HYDROcodone/APAP 5-325MG [[place] 5-325] 1 tab PO Q6HR PRN 3 Days #12 tab PRN Reason: Severe Pain Pantoprazole [Protonix] 40 mg PO DAILY 14 Days #14 tab Ondansetron Odt [Zofran Odt] 4 mg PO Q8HR PRN #12 tab PRN Reason: Nausea Is patient prescribed a controlled substance at d/c from ED?: Yes If prescribed controlled substance>3 days was MAPS reviewed?: Prescribed <3 Days Referrals: None,Stated [Primary Care Provider] - 1-2 days Time of Disposition: 07:47
[2023-05-05 05:35] LABS: Basophils % (A) 0 %; Eosinophils # (A) 0.1 k/uL (0-0.7); Eosinophils % (A) 1 %; HCT 45.8 % (39.0-53.0); HGB 16.4 gm/dL (13.0-17.5); Lymphocytes # (A) 3.4 k/uL (1.0-4.8); Lymphocytes % (A) 24 %; MCH 29.6 pg (25.0-35.0); MCHC 35.8 g/dL (31.0-37.0); MCV 82.7 fL (80.0-100.0); Mean Platelet Volume 8.1; Monocytes # (A) 0.7 k/uL (0-1.0); Monocytes % (A) 5 %; Neutrophils # (A) 9.6 k/uL (1.3-7.7); Neutrophils % (A) 68 %; Platelet Count 281 k/uL (150-450); RBC 5.54 m/uL (4.30-5.90); RDW 13.6 % (11.5-15.5); WBC 14.1 k/uL (3.8-10.6)
[2023-05-05 05:55] LABS: ALT 37 U/L (4-49); AST 40 U/L (17-59); African American GFR (CKD) >90 (>60 ml/min/1.73 sqM); Albumin 5.2 g/dL (3.5-5.0); Alkaline Phosphatase 46 U/L (38-126); Anion Gap 13 mmol/L; Blood Urea Nitrogen 15 mg/dL (9-20); Calcium 9.6 mg/dL (8.4-10.2); Carbon Dioxide 26 mmol/L (22-30); Chloride 99 mmol/L (98-107); Glucose 119 mg/dL (74-99); Magnesium 1.9 mg/dL (1.6-2.3); Non-African American GFR(CKD) >90 (>60 ml/min/1.73 sqM); Sodium 138 mmol/L (137-145); Total Bilirubin 1.6 mg/dL (0.2-1.3); Total Protein 8.3 g/dL (6.3-8.2)
[2023-05-05 05:59] LABS: Potassium 4.3 mmol/L (3.5-5.1)
[2023-05-05 06:33] VITALS: RESP 16
--- NOTE | 2023-05-05 07:16 | CT ---
EXAMINATION TYPE: CT abdomen pelvis w con CT DLP: 694 mGycm, Automated exposure control for dose reduction was used. DATE OF EXAM: 05/05/2023 6:02 AM COMPARISON: CT abdomen pelvis most recent from 10/04/2018 CLINICAL INDICATION:Male, 22 years old with history of severe abdominal pain; TECHNIQUE: Axial CT of the ;CT abdomen pelvis w con;Sagittal and coronal reformats were created on a separate workstation. Contrast used: mL of , 100 cc Isovue 300 (none if empty) Oral contrast used: (none if empty) FINDINGS: LOWER CHEST: Unremarkable ABDOMEN LIVER: Unremarkable GALLBLADDER AND BILE DUCTS: The gallbladder is surgically absent. PANCREAS: Unremarkable. SPLEEN: Unremarkable. ADRENAL GLANDS: Unremarkable. KIDNEYS AND URETERS: No evidence of hydronephrosis or renal calculus. The ureters are unremarkable. PELVIS BLADDER: Unremarkable REPRODUCTIVE: Unremarkable. ABDOMEN & PELVIS STOMACH AND BOWEL: Hyperemic mucosa of the stomach. No evidence of bowel obstruction. The appendix is not visualized. PERITONEUM/RETROPERITONEUM: No evidence of pneumoperitoneum or free fluid. VASCULATURE: No evidence of aortic aneurysm. MUSCULOSKELETAL: No acute osseous abnormalities LYMPH NODES: No gross evidence for lymphadenopathy. SOFT TISSUE/ABDOMINAL WALL: Tiny fat-containing umbilical hernia. IMPRESSION: There is hyperemic mucosa of the stomach correlate for gastritis. Otherwise no acute intraluminal pro cess.
[2023-05-05] MEDS ORDERED: MAG HYDROX/AL HYDROX/SIMETH 30 ML, HYOSCYAMINE ELIXIR 10 ML, LIDOCAINE VISCOUS 2% 10 ML PO STA ×3 (07:18)
[2023-05-05 08:28] VITALS: BP 142/79; PULSE 78; TEMP 98.1
== END 2023-05-05 08:20 | disposition home or self-care (01) ==
LOC: EC 03:53
DX: K52.9 Noninfective gastroenteritis and colitis, unspecified (principal); J45.909 Unspecified asthma, uncomplicated; I10 Essential (primary) hypertension; Z86.59 Personal history of other mental and behavioral disorders; Z87.891 Personal history of nicotine dependence; Z91.040 Latex allergy status; Z88.8 Allergy status to other drugs, medicaments and biological substances; Z90.49 Acquired absence of other specified parts of digestive tract; Z79.899 Other long term (current) drug therapy
CPT/HCPCS: 36415; 80053; 83605; 83735; 85025; 74177; 99284; 96374; 96375; 96361; J2270; J2405; Q9967

== ENCOUNTER 2024-09-15 12:13 | Emergency (ER) | payer BC, OTHER ==
[2024-09-15 12:32] VITALS: TEMP 98.7
[2024-09-15] MEDS: MORPHINE SULFATE 4 MG/ML SYRINGE IM STA (12:53)
[2024-09-15] MEDS: DIPH,PERTUS(ACELL)TETVAC-LF 0.5 ML VIAL IM ONE (12:54)
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
--- NOTE | 2024-09-15 13:19 | CT ---
EXAMINATION TYPE: CT brain cspine wo con CT DLP: 1509.2 mGycm, Automated exposure control for dose reduction was used. DATE OF EXAM: 09/15/2024 1:10 PM COMPARISON: MR C-spine/T-spine/L-spine 08/26/2015, cervical spine radiograph 08/03/2017. CLINICAL INDICATION:Male, 24 years old with history of fall off skateboard; Fall off long board, did not strike head, pain TECHNIQUE: Brain: Multiple axial CT images of the brain were obtained without IV contrast. Cspine: Axial CT images from the skull base to the inferior aspect of T2 we obtained without intraven ous contrast. Coronal and sagittal reformatted images were also reviewed. FINDINGS: Brain: Extra-axial spaces: No abnormal extra-axial fluid collections. Ventricular system: Within normal limits Cerebral parenchyma: No acute intraparenchymal hemorrhage or mass effect. The trejo-white junction is well differentiated. Cerebellum: Unremarkable. Mass effect: No evidence of midline shift. Intracranial vasculature: unremarkable Soft tissues: Normal. Calvarium/osseous structures: No depressed skull fracture. Paranasal sinuses and mastoid air cells: Clear. Visualized orbits: Orbital contents are intact. Cervical spine: Fracture: None. Osseous structures: Unremarkable Vertebral alignment: Within normal limits. Spinal canal/Neural Foramina: No evidence of significant spinal canal narrowing. No evidence for sign ificant neural foraminal stenosis. Neck soft tissues: Prevertebral soft tissues are within normal limits. Other: The airway is patent. The lung apices are clear. IMPRESSION: 1. No acute intracranial process. 2. No evidence of cervical spine fracture. [facility], , 09/15/2024 1:17 PM
--- NOTE | 2024-09-15 13:36 | XR ---
EXAMINATION TYPE: XR foot complete LT DATE OF EXAM: 09/15/2024 1:26 PM INDICATION: Patient age:Male; 24 years old; Reason for study: skate board injury; PHH. pain COMPARISON: None TECHNIQUE: The left foot was examined in the AP, oblique, and lateral projections. FINDINGS: No evidence of any acute osseous pathology. No evidence of soft tissue swelling. Joints are preserve d. Bipartite sesamoid bones. Tiny posterior calcaneal enthesophyte. No radiopaque foreign body. IMPRESSION: No evidence of acute fracture. [facility], , 09/15/2024 1:33 PM
--- NOTE | 2024-09-15 13:37 | XR ---
EXAMINATION TYPE: XR wrist complete LT DATE OF EXAM: 09/15/2024 1:26 PM INDICATION: Patient age:Male; 24 years old; Reason for study: fall off skateboard; PHH. pain COMPARISON: None TECHNIQUE: 4 views of the left wrist. Frontal, navicular, lateral, and oblique. FINDINGS: No acute osseous pathology, joint dislocation, or joint effusion. No evidence of any soft tissue swelling is seen. No radiopaque foreign body. IMPRESSION: No acute osseous pathology. [facility], , 09/15/2024 1:34 PM
--- NOTE | 2024-09-15 13:38 | XR ---
EXAMINATION TYPE: XR knee 4V RT DATE OF EXAM: 09/15/2024 1:26 PM INDICATION: Patient age:Male; 24 years old; Reason for study: skate board injury; PHH. pain COMPARISON: Right knee radiograph 10/13/2016 TECHNIQUE: The Right knee(s) was examined in Frontal, lateral, sunrise, and oblique projections. FINDINGS: No evidence of any acute osseous pathology, soft tissue swelling, or joint effusion is no wilfred. IMPRESSION: No acute osseous pathology. [facility], , 09/15/2024 1:36 PM
--- NOTE | 2024-09-15 13:38 | XR ---
EXAMINATION TYPE: XR shoulder complete RT DATE OF EXAM: 09/15/2024 1:26 PM INDICATION: Patient age:Male; 24 years old; Reason for study: fall off skateboard; pain COMPARISON: Chest radiograph 10/22/2020 TECHNIQUE: The right shoulder was examined in AP, internally rotated and scapular Y projections. . FINDINGS: No evidence of acute osseous pathology, joint dislocation, or soft tissue swelling. The remaining por tions of the visualized chest are unremarkable. IMPRESSION: No acute osseous pathology. [facility], , 09/15/2024 1:35 PM
--- NOTE | 2024-09-15 13:40 | XR ---
EXAMINATION TYPE: XR Hip RT and AP Pelvis DATE OF EXAM: 09/15/2024 1:26 PM INDICATION: Patient age:Male; 24 years old; Reason for study: fall; PHH. pain COMPARISON: CT abdomen and pelvis 05/05/2023, pelvic radiograph 10/12/2016 TECHNIQUE: The right hip was examined in the frontal and lateral projections and a AP pelvis. FINDINGS: No evidence of any acute osseous pathology, joint dislocation, or soft tissue swelling. IMPRESSION: No acute osseous pathology. [facility], , 09/15/2024 1:37 PM
[2024-09-15] MEDS: traMADol 50 MG STARTER PACK 3 TAB BTL PO STA (14:36)
[2024-09-15 14:40] VITALS: BP 122/70; RESP 18
[2024-09-15 14:41] VITALS: PULSE 78
== END 2024-09-15 14:41 | disposition home or self-care (01) ==
LOC: EC 12:13
DX: S40.211A Abrasion of right shoulder, initial encounter (principal); S60.812A Abrasion of left wrist, initial encounter; S80.211A Abrasion, right knee, initial encounter; M54.2 Cervicalgia; Z23 Encounter for immunization; Z91.040 Latex allergy status; Z91.041 Radiographic dye allergy status; Z87.891 Personal history of nicotine dependence; V00.131A Fall from skateboard, initial encounter; Y93.51 Activity, roller skating (inline) and skateboarding
CPT/HCPCS: 73502; 73030; 73110; 73564; 73630; 72125; 70450; 90715; 29125; 99284; 96372; 90471; J2270